=== PATIENT | female | born 1985 | race Caucasian/White ===

== ENCOUNTER 2016-09-20 08:47 | Emergency (ER) | payer OTHER ==
[2016-09-20 08:55] VITALS: BP 109/88
--- NOTE | 2016-09-20 08:57 | ED Physician Documentation ---
PD HPI SKIN - Stated complaint Stated Complaint: SPIDER BITE - Chief complaint Chief Complaint: Wound - History obtained from History obtained from: Patient - History of Present Illness Timing - onset: How many days ago (5) Timing - duration: Days (5) Timing - details: Gradual onset (had [place] in [facility] and noted a sore spot outer lower leg. This has gradually gotten more painful and red/swelling without drainage. She did not note any spiders/ ticks/ bee stings to the area. No fevers, general symptoms, nor diffuse rash.) Location: RLE (outer lower leg.) Quality / character: Painful, Discolored (red), Swelling. No: Draining Associated symptoms: No: Fever, N/V/D Contributing factors: No: Insect bite /sting (did not note insect per se, but was concerned about spider or tick.) Similar symptoms before: Has not had sx before Recently seen: Not recently seen Review of Systems Constitutional: denies: Fever, Chills, Myalgias GI: denies: Nausea, Vomiting PD PAST MEDICAL HISTORY - Past Medical History Cardiovascular: None Endocrine/Autoimmune: None - Present Medications Home Medications: Ambulatory Orders Medication Instructions Recorded Confirmed Sulfamethox/Trimeth 800/160 1 each PO BID #14 tablet 09/20/16 [Bactrim Ds 800/160] - Allergies Allergies/Adverse Reactions: Allergies Allergy/AdvReac Type Severity Reaction Status Date / Time No Known Drug Allergies Allergy Verified 09/20/16 08:55 PD ED PE NORMAL - Vitals Vital signs reviewed: Yes - General General: Alert and oriented X 3, No acute distress, Well developed/nourished - Derm Derm: Normal color, Warm and dry, Other (outer part lower right leg about top of where sock would end has rounded 2-3 cm area of redness/ warmth/ tenderness. Central small pinpoint hole without FB and no drainage. Bedside U/S without fluid collection. ) - Neuro Neuro: No motor deficit, No sensory deficit Results - Vitals Vitals: Vital Signs - 24 hr 09/20/16 08:53 Temperature 36.4 C L Heart Rate 69 Respiratory 16 Rate Blood Pressure 109/88 H O2 Saturation 100 Oxygen O2 Source Room air Departure - Departure Disposition: 01 Home, Self Care Clinical Impression: Leg abscess Condition: Stable Record reviewed to determine appropriate education?: Yes Instructions: ED Staph Infec Abx Tx Only, ED Bite Sting Insect Local Allergic React Prescriptions: Sulfamethox/Trimeth 800/160 [Bactrim Ds 800/160] 1 each PO BID #14 tablet Comments: This may be local effect of insect bite/sting, such as spider or tick. We are not in [place] area, so low risk for that. Otherwise, with the redness/symptoms increasing, would think more of a local infection developing and would mainly treat it that way, with warm compresses 2-3 times daily, anti-inflammatories such as Naproxen or Ibuprofen 2-3 times daily, and Bactrim antibiotic twice daily for 5-7 days. Recheck back home if not improved over the next few days or gone by 4-5 days.
[2016-09-20] MEDS ORDERED: SULFAMETH/TRIMETH DS 800/160 MG TABLET PO STA (09:21)
[2016-09-20] MEDS ORDERED: IBUPROFEN 400 MG TABLET PO STA (09:21)
[2016-09-20] MEDS ORDERED: SULFAMETH/TRIMETH DS 800/160 MG TABLET PO ONE (09:28)
[2016-09-20] MEDS ORDERED: IBUPROFEN 400 MG TABLET PO ONE (09:28)
== END 2016-09-20 09:33 | disposition home or self-care (01) ==
LOC: ED 08:47
DX: L02.415 Cutaneous abscess of right lower limb (principal)
CPT/HCPCS: 99283; A9270